=== PATIENT | male | born 1995 | race African-American/Black ===

== ENCOUNTER 2018-01-17 19:58 | Emergency (ER) | payer SELFPAY ==
[~2018-01-17] VITALS: Ht 180.3 cm; Wt 81.6 kg
[2018-01-17] MEDS ORDERED: CEPHALEXIN500 M1 PO (20:38)
== END 2018-01-17 20:55 | disposition home or self-care (01) ==
LOC: ED 19:58
DX: S91.312A Laceration without foreign body, left foot, initial encounter (principal); S91.112A Laceration without foreign body of left great toe without damage to nail, initial encounter; Z88.0 Allergy status to penicillin; W22.8XXA Striking against or struck by other objects, initial encounter; Y93.89 Activity, other specified; Y92.098 Other place in other non-institutional residence as the place of occurrence of the external cause; Y99.9 Unspecified external cause status

== ENCOUNTER → 2020-08-21 | Outpatient (CLI) | payer SELFPAY ==
[~2020-08-21] MED LIST: CEPHALEXIN500 M1 PO
== END | disposition home or self-care (01) ==
LOC: COVID19 15:22
PROVIDERS: ATTEND Emergency Medicine
DX: Z20.822 Contact with and (suspected) exposure to COVID-19 (principal)

== ENCOUNTER → 2020-10-24 | Outpatient (CLI) | payer SELFPAY | END | disposition home or self-care (01) | LOC: COVID19 14:47 | PROVIDERS: ATTEND Internal Medicine | DX: U07.1 COVID-19 (principal) ==

== ENCOUNTER 2022-09-08 01:09 | Emergency (ER) | payer OTHER ==
[~2022-09-08] VITALS: Ht 182.8 cm; Wt 102.1 kg
[2022-09-08 02:22] LABS: BASO % 0.3 % (0.0-1.0); EOS % 0.3 % (1.0-4.0); HEMATOCRIT 40.3 % (42.0-52.0); LYMPH # 1.8 10*3/uL (1.3-4.4); LYMPH % 15.3 % (27.0-41.0); MEAN CELL VOLUME 86.7 fl (80.0-94.0); MEAN CORPUSCULAR HGB 29.9 pg (27.0-31.0); MEAN CORPUSCULAR HGB CONC 34.5 g/dl (33.0-37.0); MEAN PLATELET VOLUME 10.5 fl (9.6-12.3); MONO # 0.7 10*3/uL (0.1-1.0); MONO % 5.8 % (3.0-9.0); NEUT # 9.2 10*3/uL (2.3-7.9); PLATELET COUNT AUTOMATED 263 10*3/uL (130-400); RED BLOOD COUNT 4.65 10*6/uL (4.50-5.90); RED CELL DISTRI WIDTH 12.7 % (0-14.5); WHITE BLOOD COUNT 11.9 10*3/uL (4.8-10.8)
[2022-09-08 02:30] LABS: BILIRUBIN Negative (Negative); BLOOD Negative (Negative); CLARITY Clear (Clear); COLOR Yellow (Yellow); GLUCOSE Negative (Negative); KETONE Negative (Negative); LEUKO ESTERASE Negative (Negative); NITRITE Negative (Negative); SPECIFIC GRAVITY 1.015 (1.001-1.030); UROBILINOGEN 0.2 E.U./dl (0.0-1.0)
[2022-09-08 02:36] LABS: EPITHELIAL CELLS 0-2; RBC 0-2 rbc/hpf (0-2); WBC 0-2 wbc/hpf (0-5)
[2022-09-08 02:40] LABS: ALKALINE PHOSPHATASE 77 U/L (46-116); BUN 12 mg/dl (9-23); CHLORIDE 101 mmol/L (98-107); LIPASE 37 U/L (12-53); SGPT/ALT 50 U/L (10-49)
== END 2022-09-08 06:49 | disposition home or self-care (01) ==
LOC: ED 01:09
PROVIDERS: Emergency Medicine
DX: K52.9 Noninfective gastroenteritis and colitis, unspecified (principal); Z88.0 Allergy status to penicillin

== ENCOUNTER 2022-09-17 15:28 | Emergency (ER) | payer OTHER ==
[~2022-09-17] VITALS: Wt 104.3 kg
[2022-09-17] MEDS ORDERED: CYCLOBENZAPRINE5 M3 PO (20:46)
[2022-09-17] MEDS ORDERED: MEDROL DOSEPAK4 MG PO (20:46)
== END 2022-09-17 20:50 | disposition home or self-care (01) ==
LOC: ED 15:28
DX: M54.16 Radiculopathy, lumbar region (principal); Z88.0 Allergy status to penicillin

== ENCOUNTER 2023-10-25 04:21 | Emergency (ER) | payer OTHER ==
[~2023-10-25 04:21] MED LIST changes: +CYCLOBENZAPRINE5 M3 PO; +MEDROL DOSEPAK4 MG PO
[2023-10-25] MEDS ORDERED: ZITHROMAX250 MG PO (06:07)
== END 2023-10-25 06:55 | disposition home or self-care (01) ==
LOC: ED 04:21
DX: J32.9 Chronic sinusitis, unspecified (principal); Z20.822 Contact with and (suspected) exposure to COVID-19; Z88.0 Allergy status to penicillin; Z79.2 Long term (current) use of antibiotics; Z79.899 Other long term (current) drug therapy; Z98.890 Other specified postprocedural states

== ENCOUNTER 2024-09-19 00:09 | Emergency (ER) | payer OTHER ==
[~2024-09-19] VITALS: Ht 182.8 cm; Wt 102.1 kg
[~2024-09-19 00:09] MED LIST changes: +ZITHROMAX250 MG PO
[2024-09-19] MEDS ORDERED: Ketorolac Tromethamine 60 MG/2 ML VIAL IM ONE (01:30)
[2024-09-19] MEDS ORDERED: METHOCARBAMOL 750 MG TAB PO ONE (01:30)
[2024-09-19] MEDS ORDERED: NAPROSYN500 MG PO (01:47)
[2024-09-19] MEDS ORDERED: METHOCARBAMOL750 M1 PO (01:47)
== END 2024-09-19 01:57 | disposition home or self-care (01) ==
LOC: ED 00:09
DX: S39.012A Strain of muscle, fascia and tendon of lower back, initial encounter (principal); Z88.0 Allergy status to penicillin; Z98.890 Other specified postprocedural states; X50.1XXA Overexertion from prolonged static or awkward postures, initial encounter; Y93.89 Activity, other specified; Y92.009 Unspecified place in unspecified non-institutional (private) residence as the place of occurrence of the external cause; Y99.8 Other external cause status